=== PATIENT | male | born 1980 | race African-American/Black ===

== ENCOUNTER 2020-04-22 16:05 | Emergency (ER) | payer OTHER ==
[~2020-04-22] VITALS: Ht 177.8 cm; Wt 94.3 kg
[2020-04-22 16:25] VITALS: BP 136/70; Ht 177.8 cm; Wt 94.3 kg
== END 2020-04-22 17:22 | disposition home or self-care (01) ==
LOC: ED 16:05
DX: S16.1XXA Strain of muscle, fascia and tendon at neck level, initial encounter (principal); R51 Headache; X58.XXXA Exposure to other specified factors, initial encounter; Y93.89 Activity, other specified; Y92.89 Other specified places as the place of occurrence of the external cause; Y99.8 Other external cause status
CPT/HCPCS: Q0162